=== PATIENT | male | born 1965 | race Caucasian/White ===

== ENCOUNTER 2021-09-02 11:06 | Observation (INO) | payer OTHER ==
[2021-09-02 11:37] LABS: CHLORIDE,CL 98 mEq/L (98-106); SODIUM,NA 135 mEq/L (136-145)
[2021-09-02 11:53] LABS: HEMOGLOBIN A1C 7.7 % (4.8-5.6)
[2021-09-02] MEDS ORDERED: Acetaminophen 325 MG Tab PO PRN (16:24)
[2021-09-02] MEDS ORDERED: Sodium Chloride 0.9% 10 ML Syringe FLUSH PRN (16:24)
[2021-09-02] MEDS ORDERED: Albuterol/Ipratropium 3.0-0.5 MG/3 ML Neb Soln NEB PRN (16:24)
[2021-09-02] MEDS ORDERED: 50% Dextrose in Water 50 ML Syringe IVPUSH PRN (16:24)
[2021-09-02] MEDS ORDERED: Metoprolol Tartrate 50 MG Tab PO ONE (16:37)
[2021-09-02] MEDS: Furosemide 40 MG Tab PO SCH (17:04)
[2021-09-02] MEDS ORDERED: Enoxaparin 40 MG/0.4 ML Syringe SUBCUT SCH (20:00)
[2021-09-02] MEDS ORDERED: Glucagon,Human Recombinant 1 MG Vial IM PRN (20:01)
[2021-09-02] MEDS: Insulin Glarg,Human.Rec.Analog 100 Unit/ML SUBCUT SCH (20:36)
[2021-09-03 07:44] LABS: CHLORIDE,CL 96 mEq/L (98-106); SODIUM,NA 134 mEq/L (136-145)
[2021-09-03] MEDS ORDERED: Metoprolol Tartrate 50 MG Tab PO SCH (08:00)
[2021-09-03] MEDS: Furosemide 40 MG Tab PO SCH (08:10)
[2021-09-03] MEDS: Apixaban 5 MG Tab PO SCH ×2 (09:29→20:00)
[2021-09-03] MEDS: metFORMIN 500 MG Tab PO SCH ×2 (09:29→17:19)
[2021-09-03] MEDS: Insulin Lispro 100 Units/ML 3 ML Vial SUBCUT SCH ×3 (12:00→20:03)
[2021-09-03] MEDS: Insulin Glarg,Human.Rec.Analog 100 Unit/ML SUBCUT SCH (20:01)
[2021-09-04] MEDS ORDERED: METOPROLOL TARTRATE 100 MG PO SCH (08:00)
[2021-09-04] MEDS: metFORMIN 500 MG Tab PO SCH (08:28)
[2021-09-04] MEDS: Apixaban 5 MG Tab PO SCH (08:28)
[2021-09-04] MEDS: Insulin Lispro 100 Units/ML 3 ML Vial SUBCUT SCH (08:29)
[2021-09-04] MEDS: Furosemide 40 MG Tab PO SCH (08:29)
[2021-09-04 08:40] VITALS: BP 135/93; PULSE 92
== END 2021-09-04 11:27 | disposition home or self-care (01) ==
LOC: CC.FCMC 11:06 → UNDOADMOB 11:52 → CC.MS 11:52 → UNDOADMOB 16:24
PROVIDERS: ADMIT Nurse Practitioner Family; ATTEND Family Medicine
DX: U07.1 COVID-19 (principal); R73.01 Impaired fasting glucose; F41.9 Anxiety disorder, unspecified; J45.909 Unspecified asthma, uncomplicated; F32.A Depression, unspecified; K21.9 Gastro-esophageal reflux disease without esophagitis; E78.5 Hyperlipidemia, unspecified; I10 Essential (primary) hypertension; E11.9 Type 2 diabetes mellitus without complications; I48.91 Unspecified atrial fibrillation; E66.01 Morbid (severe) obesity due to excess calories; G47.33 Obstructive sleep apnea (adult) (pediatric); Z88.0 Allergy status to penicillin; Z88.8 Allergy status to other drugs, medicaments and biological substances; Z79.899 Other long term (current) drug therapy; Z90.49 Acquired absence of other specified parts of digestive tract; Z98.890 Other specified postprocedural states; Z87.891 Personal history of nicotine dependence; Z79.84 Long term (current) use of oral hypoglycemic drugs; Z79.01 Long term (current) use of anticoagulants
CPT/HCPCS: 36415; 71046; 80053; 80061; 82947; 83036; 83880; 84484; 85025; 85379; 86140; 93005; 96372; 99217; 99220; 99225; A9270-GY; G0378; J1650; J1815-GY

== ENCOUNTER 2024-07-15 07:04 | Day surgery (SDC) | payer OTHER ==
[2024-07-15] MEDS: Lactated Ringers 1,000 ML IV SCH (07:39)
[2024-07-15] MEDS ORDERED: Flumazenil 0.1 MG/ML 5 ML MDV ONE (08:10)
[2024-07-15] MEDS ORDERED: Propofol 200 MG/20 ML SDV ONE ×2 (08:10)
[2024-07-15] MEDS ORDERED: Phenylephrine 1% 10 MG/ML SDV ONE (08:10)
[2024-07-15] MEDS ORDERED: Midazolam 1 MG/ML 2 ML SDV ONE (08:10)
[2024-07-15] MEDS ORDERED: fentaNYL 50 MCG/ML SDV ONE (08:10)
[2024-07-15] MEDS ORDERED: Lidocaine 2% 20 ML MDV ONE (08:10)
[2024-07-15] MEDS ORDERED: Ketamine 200 MG/20 ML MDV ONE (08:10)
== END 2024-07-15 10:21 | disposition home or self-care (01) ==
LOC: CC.SDS 07:04
PROVIDERS: ATTEND Family Medicine
DX: D12.3 Benign neoplasm of transverse colon (principal); D12.5 Benign neoplasm of sigmoid colon; K22.70 Barrett's esophagus without dysplasia; K21.9 Gastro-esophageal reflux disease without esophagitis; Z98.84 Bariatric surgery status
CPT/HCPCS: 00813; 87081; J2250; J2371; J2704; J3010; J3490; J7120

== ENCOUNTER 2025-03-21 13:21 | Emergency (ER) | payer OTHER ==
[2025-03-21 13:39] LABS: BASOPHILS ABSOLUTE AUTO 0.08 10^3/uL (0.00-0.50); BASOPHILS PERCENT AUTO 1.6 % (0-1); EOSINOPHILS ABSOLUTE AUTO 0.24 10^3/uL (0.00-1.50); EOSINOPHILS PERCENT AUTO 4.8 % (0-6); IMMATURE GRAN ABSOLUTE AUTO 0.00 10^3/uL (0.00-0.49); IMMATURE GRAN PERCENT AUTO 0.0 % (0.0-4.9); LYMPHOCYTES ABSOLUTE AUTO 1.78 10^3/uL (0.60-5.00); LYMPHOCYTES PERCENT AUTO 35.3 % (24-44); MONOCYTES ABSOLUTE AUTO 0.49 10^3/uL (0.00-1.50); MONOCYTES PERCENT AUTO 9.7 % (0-10); NEUTROPHILS ABSOLUTE AUTO 2.45 x10^3/uL (1.80-8.00); NEUTROPHILS PERCENT AUTO 48.6 % (41-71); PLATELET COUNT,PLT 113 10^3/uL (150-400); RED BLOOD CELL COUNT 5.35 x10^6/uL (4.50-6.00); WHITE BLOOD CELL COUNT,WBC 5.0 10^3/uL (4.0-11.0)
[2025-03-21 13:55] LABS: ALANINE AMINOTRANSFERASE,ALT 60 U/L (12-78); ASPARTATE AMNIOTRANSFERASE,AST 53 U/L (15-37); BILIRUBIN TOTAL 1.3 mg/dL (0.0-1.0); BLOOD UREA NITROGEN,BUN 8 mg/dL (7-18); CARBON DIOXIDE,CO2 20 mmol/L (21-32); CHLORIDE,CL 101 mEq/L (98-106); CREATININE 0.8 mg/dL (0.7-1.3); ESTIMATED GFR 103 mL/min (>=60); GLUCOSE RANDOM 101 mg/dL (75-99); POTASSIUM,K 3.7 mEq/L (3.5-5.0); PROTEIN TOTAL,TP 7.2 g/dL (6.4-8.2); SODIUM,NA 140 mEq/L (136-145)
[2025-03-21] MEDS: Metoprolol Tartrate 5 MG/5 ML SDV IVPUSH ONE (14:00)
[2025-03-21] MEDS: Ketorolac 30 MG/ML SDV IVPUSH ONE (14:28)
== END 2025-03-21 15:05 | disposition home or self-care (01) ==
LOC: CC.ED 13:21
DX: I47.19 Other supraventricular tachycardia (principal); M25.512 Pain in left shoulder; M54.9 Dorsalgia, unspecified; I10 Essential (primary) hypertension; E11.9 Type 2 diabetes mellitus without complications; Z88.0 Allergy status to penicillin; Z88.1 Allergy status to other antibiotic agents; Z79.01 Long term (current) use of anticoagulants; Z79.899 Other long term (current) drug therapy
CPT/HCPCS: 36415; 71046; 80053; 83690; 83735; 84484; 85025; 86140; 93005; 93010; 96374; 99284; 99285-25; J1885; J3490

== ENCOUNTER 2025-06-02 12:54 | Inpatient (IN) | payer OTHER ==
[2025-06-02] MEDS: fentaNYL 50 MCG/ML SDV IVPUSH ONE (13:08)
[2025-06-02 13:14] LABS: BASOPHILS ABSOLUTE AUTO 0.06 10^3/uL (0.00-0.50); BASOPHILS PERCENT AUTO 0.6 % (0-1); EOSINOPHILS ABSOLUTE AUTO 0.09 10^3/uL (0.00-1.50); EOSINOPHILS PERCENT AUTO 1.0 % (0-6); IMMATURE GRAN ABSOLUTE AUTO 0.03 10^3/uL (0.00-0.49); IMMATURE GRAN PERCENT AUTO 0.3 % (0.0-4.9); LYMPHOCYTES ABSOLUTE AUTO 1.55 10^3/uL (0.60-5.00); LYMPHOCYTES PERCENT AUTO 16.7 % (24-44); MONOCYTES ABSOLUTE AUTO 0.86 10^3/uL (0.00-1.50); MONOCYTES PERCENT AUTO 9.3 % (0-10); NEUTROPHILS ABSOLUTE AUTO 6.67 x10^3/uL (1.80-8.00); NEUTROPHILS PERCENT AUTO 72.1 % (41-71); PLATELET COUNT,PLT 151 10^3/uL (150-400); RED BLOOD CELL COUNT 5.29 x10^6/uL (4.50-6.00); WHITE BLOOD CELL COUNT,WBC 9.3 10^3/uL (4.0-11.0)
[2025-06-02 13:30] LABS: ALANINE AMINOTRANSFERASE,ALT 67 U/L (12-78); ASPARTATE AMNIOTRANSFERASE,AST 69 U/L (15-37); BILIRUBIN TOTAL 1.6 mg/dL (0.0-1.0); BLOOD UREA NITROGEN,BUN 9 mg/dL (7-18); CARBON DIOXIDE,CO2 27 mmol/L (21-32); CHLORIDE,CL 100 mEq/L (98-106); CREATININE 0.7 mg/dL (0.7-1.3); ETHANOL BLOOD MEDICAL 164 mg/dL (0-3); GLUCOSE RANDOM 143 mg/dL (75-99); POTASSIUM,K 3.2 mEq/L (3.5-5.0); PROTEIN TOTAL,TP 6.8 g/dL (6.4-8.2); SODIUM,NA 143 mEq/L (136-145)
[2025-06-02 13:32] LABS: ESTIMATED GFR 107 mL/min (>=60)
[2025-06-02 14:14] LABS: APPEARANCE,URINE CLEAR (CLEAR); GLUCOSE,URINE NEGATIVE (NEGATIVE); OCCULT BLOOD,URINE NEGATIVE (NEGATIVE)
[2025-06-02 14:22] LABS: EPITHELIAL CELLS,URINE NOT SEEN /HPF (NOT SEEN)
[2025-06-02] MEDS ORDERED: Ondansetron 4 MG/2 ML SDV IV PRN (15:00)
[2025-06-02] MEDS ORDERED: Ondansetron 4 MG Tab.DIS PO PRN (15:00)
[2025-06-02] MEDS: Acetaminophen/oxyCODONE 325-5 MG Tab PO PRN (15:10)
[2025-06-02] MEDS: fentaNYL 50 MCG/ML SDV IVPUSH PRN (15:10)
[2025-06-02] MEDS: Folic Acid 1 MG, Multivitamins 1 TAB, Thiamine 100 MG, Magnesium Oxide 400 MG PO SCH (15:38)
[2025-06-02] MEDS: Magnesium Sulfate 2 GM/50 mL 2 GM in Premix Bag 1 BAG IV ONE (15:39)
[2025-06-02] MEDS: Potassium Chloride 20 MEQ Tab.ER PO ONE (15:39)
[2025-06-03 07:36] LABS: BASOPHILS ABSOLUTE AUTO 0.05 10^3/uL (0.00-0.50); BASOPHILS PERCENT AUTO 0.7 % (0-1); EOSINOPHILS ABSOLUTE AUTO 0.18 10^3/uL (0.00-1.50); EOSINOPHILS PERCENT AUTO 2.6 % (0-6); IMMATURE GRAN ABSOLUTE AUTO 0.01 10^3/uL (0.00-0.49); IMMATURE GRAN PERCENT AUTO 0.1 % (0.0-4.9); LYMPHOCYTES ABSOLUTE AUTO 1.04 10^3/uL (0.60-5.00); LYMPHOCYTES PERCENT AUTO 15.2 % (24-44); MONOCYTES ABSOLUTE AUTO 0.62 10^3/uL (0.00-1.50); MONOCYTES PERCENT AUTO 9.1 % (0-10); NEUTROPHILS ABSOLUTE AUTO 4.92 x10^3/uL (1.80-8.00); NEUTROPHILS PERCENT AUTO 72.3 % (41-71); PLATELET COUNT,PLT 111 10^3/uL (150-400); RED BLOOD CELL COUNT 4.82 x10^6/uL (4.50-6.00); WHITE BLOOD CELL COUNT,WBC 6.8 10^3/uL (4.0-11.0)
[2025-06-03 07:38] LABS: ALANINE AMINOTRANSFERASE,ALT 45.0 U/L (12-78); ASPARTATE AMNIOTRANSFERASE,AST 38.0 U/L (15-37); BILIRUBIN TOTAL 3.0 mg/dL (0.0-1.0); BLOOD UREA NITROGEN,BUN 10.0 mg/dL (7-18); CARBON DIOXIDE,CO2 30.0 mmol/L (21-32); CHLORIDE,CL 102.0 mEq/L (98-106); CREATININE 0.7 mg/dL (0.7-1.3); EST CRCL DRUG DOSING (CG) 118.77 mL/min; GLUCOSE RANDOM 147.0 mg/dL (75-99); POTASSIUM,K 3.2 mEq/L (3.5-5.0); PROTEIN TOTAL,TP 5.5 g/dL (6.4-8.2); SODIUM,NA 140.0 mEq/L (136-145)
[2025-06-03 07:46] LABS: ESTIMATED GFR 107.0 mL/min (>=60)
[2025-06-03] MEDS ORDERED: [UNRECOGNIZED DRUG - OTHER] IH SCH (08:00)
[2025-06-03] MEDS ORDERED: FORMOTEROL FUMARATE IH SCH (08:00)
[2025-06-03] MEDS ORDERED: BUDESONIDE IH SCH (08:00)
[2025-06-03] MEDS: Potassium Chloride 10 MEQ Tab.ER PO SCH (08:10)
[2025-06-03] MEDS: Metoprolol Succinate 100 MG Tab.ER PO SCH (08:10)
[2025-06-03] MEDS: Diltiazem 180 MG Cap.CD PO SCH (08:10)
[2025-06-03] MEDS: Potassium Chloride 20 MEQ Tab.ER PO SCH (10:23)
[2025-06-04 09:09] LABS: BASOPHILS ABSOLUTE AUTO 0.03 10^3/uL (0.00-0.50); BASOPHILS PERCENT AUTO 0.4 % (0-1); EOSINOPHILS ABSOLUTE AUTO 0.23 10^3/uL (0.00-1.50); EOSINOPHILS PERCENT AUTO 2.9 % (0-6); IMMATURE GRAN ABSOLUTE AUTO 0.02 10^3/uL (0.00-0.49); IMMATURE GRAN PERCENT AUTO 0.3 % (0.0-4.9); LYMPHOCYTES ABSOLUTE AUTO 1.00 10^3/uL (0.60-5.00); LYMPHOCYTES PERCENT AUTO 12.6 % (24-44); MONOCYTES ABSOLUTE AUTO 0.63 10^3/uL (0.00-1.50); MONOCYTES PERCENT AUTO 7.9 % (0-10); NEUTROPHILS ABSOLUTE AUTO 6.05 x10^3/uL (1.80-8.00); NEUTROPHILS PERCENT AUTO 75.9 % (41-71); PLATELET COUNT,PLT 95 10^3/uL (150-400); RED BLOOD CELL COUNT 4.58 x10^6/uL (4.50-6.00); WHITE BLOOD CELL COUNT,WBC 8.0 10^3/uL (4.0-11.0)
[2025-06-04 09:21] LABS: ALANINE AMINOTRANSFERASE,ALT 37.0 U/L (12-78); ASPARTATE AMNIOTRANSFERASE,AST 26.0 U/L (15-37); BILIRUBIN TOTAL 3.1 mg/dL (0.0-1.0); BLOOD UREA NITROGEN,BUN 9.0 mg/dL (7-18); CARBON DIOXIDE,CO2 30.0 mmol/L (21-32); CHLORIDE,CL 96.0 mEq/L (98-106); CREATININE 0.8 mg/dL (0.7-1.3); EST CRCL DRUG DOSING (CG) 103.92 mL/min; GLUCOSE RANDOM 183.0 mg/dL (75-99); POTASSIUM,K 3.5 mEq/L (3.5-5.0); PROTEIN TOTAL,TP 5.6 g/dL (6.4-8.2); SODIUM,NA 134.0 mEq/L (136-145)
[2025-06-04 09:22] LABS: ESTIMATED GFR 103.0 mL/min (>=60)
[2025-06-04] MEDS: Magnesium Sulfate 2 GM/50 mL 2 GM in Premix Bag 1 BAG IV ONE (09:45)
[2025-06-04] MEDS: Remove Patch LIDOCAINE TRDERM SCH (19:42)
[2025-06-05 07:39] LABS: ASPARTATE AMNIOTRANSFERASE,AST 28.0 U/L (15-37); BILIRUBIN TOTAL 2.6 mg/dL (0.0-1.0); BLOOD UREA NITROGEN,BUN 9.0 mg/dL (7-18); CARBON DIOXIDE,CO2 28.0 mmol/L (21-32); CHLORIDE,CL 96.0 mEq/L (98-106); CREATININE 0.8 mg/dL (0.7-1.3); EST CRCL DRUG DOSING (CG) 103.92 mL/min; GLUCOSE RANDOM 130.0 mg/dL (75-99); POTASSIUM,K 3.4 mEq/L (3.5-5.0); PROTEIN TOTAL,TP 5.9 g/dL (6.4-8.2); SODIUM,NA 133.0 mEq/L (136-145)
[2025-06-05 07:41] LABS: BASOPHILS ABSOLUTE AUTO 0.05 10^3/uL (0.00-0.50); BASOPHILS PERCENT AUTO 0.7 % (0-1); EOSINOPHILS ABSOLUTE AUTO 0.31 10^3/uL (0.00-1.50); EOSINOPHILS PERCENT AUTO 4.0 % (0-6); IMMATURE GRAN ABSOLUTE AUTO 0.04 10^3/uL (0.00-0.49); IMMATURE GRAN PERCENT AUTO 0.5 % (0.0-4.9); LYMPHOCYTES ABSOLUTE AUTO 1.43 10^3/uL (0.60-5.00); LYMPHOCYTES PERCENT AUTO 18.7 % (24-44); MONOCYTES ABSOLUTE AUTO 0.81 10^3/uL (0.00-1.50); MONOCYTES PERCENT AUTO 10.6 % (0-10); NEUTROPHILS ABSOLUTE AUTO 5.02 x10^3/uL (1.80-8.00); NEUTROPHILS PERCENT AUTO 65.5 % (41-71); PLATELET COUNT,PLT 102 10^3/uL (150-400); RED BLOOD CELL COUNT 4.53 x10^6/uL (4.50-6.00); WHITE BLOOD CELL COUNT,WBC 7.7 10^3/uL (4.0-11.0)
[2025-06-05 07:51] LABS: ALANINE AMINOTRANSFERASE,ALT 34.0 U/L (12-78)
[2025-06-05 07:59] LABS: ESTIMATED GFR 103.0 mL/min (>=60)
== END 2025-06-05 12:10 | disposition home or self-care (01) | DRG 552 ==
LOC: CC.ED 12:54 → CC.MS 14:45 → UNDOADMOB 14:45 → OBSVTOIN 06-04 10:01 → INTOOBSV 06-04 10:01 → OBSVTOIN 06-04 11:08 → CC.MS 06-04 11:08
PROVIDERS: ADMIT Nurse Practitioner; ATTEND Nurse Practitioner
DX: M54.59 Other low back pain (principal); E87.20 Acidosis, unspecified; W18.30XA Fall on same level, unspecified, initial encounter; F10.10 Alcohol abuse, uncomplicated; F32.A Depression, unspecified; E87.5 Hyperkalemia; E11.9 Type 2 diabetes mellitus without complications; I10 Essential (primary) hypertension; R55 Syncope and collapse; E83.42 Hypomagnesemia; Z79.899 Other long term (current) drug therapy; Z79.01 Long term (current) use of anticoagulants; Z90.49 Acquired absence of other specified parts of digestive tract
CPT/HCPCS: 36415; 70450; 71045; 72125; 72128; 72131; 80053; 80307; 81001; 83605; 83735; 84484; 85025; 85730; 93005; 93010; 96365; 96366; 96374; 96375; 96376; 97161-GP; 99285-25; A9270-GY; G0378; J3010; J3360; J3475; J7030

== ENCOUNTER 2025-06-16 10:15 | Day surgery (SDC) | payer OTHER ==
[2025-06-16] MEDS: Lactated Ringers 1,000 ML IV SCH (10:36)
[2025-06-16] MEDS ORDERED: Propofol 200 MG/20 ML SDV ONE ×2 (10:52)
[2025-06-16] MEDS ORDERED: Ketamine 200 MG/20 ML MDV ONE (10:52)
[2025-06-16] MEDS ORDERED: fentaNYL 50 MCG/ML SDV ONE (10:52)
[2025-06-16] MEDS ORDERED: Midazolam 1 MG/ML 2 ML SDV ONE ×2 (10:52)
== END 2025-06-16 12:10 | disposition home or self-care (01) ==
LOC: CC.SDS 10:15
PROVIDERS: ATTEND Family Medicine
DX: Z12.11 Encounter for screening for malignant neoplasm of colon (principal); D12.3 Benign neoplasm of transverse colon; I10 Essential (primary) hypertension; E11.9 Type 2 diabetes mellitus without complications; E78.5 Hyperlipidemia, unspecified; J45.909 Unspecified asthma, uncomplicated; K21.9 Gastro-esophageal reflux disease without esophagitis; E66.01 Morbid (severe) obesity due to excess calories; Z68.43 Body mass index [BMI] 50.0-59.9, adult; Z88.0 Allergy status to penicillin; Z88.8 Allergy status to other drugs, medicaments and biological substances; Z87.891 Personal history of nicotine dependence; Z79.899 Other long term (current) drug therapy
CPT/HCPCS: 00811; J2250; J2704; J3010; J3490; J7120